=== PATIENT | female | born 1950 | race Native Hawaiian/Other Pacific Islander ===

== ENCOUNTER 2016-05-27 08:52 | Outpatient (CLI) | payer BC ==
[~2016-05-27 08:52] MED LIST: LEVO0.0218 PO; VASOTEC10 MG PO; VICTOZA18 MG/3 ML SC
== END 2016-05-27 09:52 | disposition home or self-care (01) ==
LOC: MAMMO 08:52
DX: Z12.31 Encounter for screening mammogram for malignant neoplasm of breast (principal)
CPT/HCPCS: G0202-TC

== ENCOUNTER 2017-10-03 09:35 | Outpatient (CLI) | payer OTHER, BC | END 2017-10-03 22:48 | disposition home or self-care (01) | LOC: MAMMO 09:35 | DX: Z12.31 Encounter for screening mammogram for malignant neoplasm of breast (principal) ==